=== PATIENT | female | born 1995 | race Caucasian/White ===

== ENCOUNTER 2017-06-13 12:23 | Outpatient (CLI) | payer MEDICAID ==
--- NOTE | 2017-06-13 15:04 | ULT ---
OB ULTRASOUND: HISTORY: Size and dates. FINDINGS: A single live intrauterine gestation is seen with measurements corresponding to an estimated gestatio nal age of 20 weeks 1 day and ADRIANNA at 10/30/17. The estimated weight measures 348 gm or 12 ounce s. measurements as follows: BPD 4.73 cm, 20 weeks 2 days HC 17.97 cm, 20 weeks 3 days AC 15.30 cm, 20 weeks 4 days FL 3.26 cm, 20 weeks 1 day The cervical length measures 3 cm. heart rate measures 137 b.p.m. The placenta is posterior w ithout evidence of placenta previa. Amniotic fluid is adequate. A 3-vessel cord, cord insertion, kidneys, bladder, stomach, 4-chamber heart, lateral ventricles , cerebellum, spine, lips/nose, upper and lower extremities visualized. No definite abnormalit ies are seen. IMPRESSION: Single live intrauterine of 20 weeks 1 day, estimated gestational age and estimated date of delivery at 10/30/17. POS: [facility]
== END 2017-06-13 12:24 | disposition home or self-care (01) ==
LOC: ULT 12:23
PROVIDERS: ATTEND Family Medicine
DX: Z34.92 Encounter for supervision of normal pregnancy, unspecified, second trimester (principal); Z3A.20 20 weeks gestation of pregnancy
CPT/HCPCS: 76805

== ENCOUNTER 2017-10-25 13:27 | Inpatient (IN) | payer OTHER ==
--- NOTE | 2017-10-30 16:30 | HP ---
HISTORY OF PRESENT ILLNESS: This is a 22-year-old white female, G1, P0 at 40 weeks gestation with ED C of 10/25/2017. The patient has had an uncomplicated course. She has been having co ntractions over the past week. Her cervix has been unchanged at 1-2 cm, 50%, high in vertex. She castellon s been admitted for an elective induction. PAST MEDICAL HISTORY: Unremarkable. PAST SURGICAL HISTORY: None. FAMILY HISTORY: Maternal aunt with breast cancer. SOCIAL HISTORY: She is single. She works at [employer]. She is a nonsmoker, nondrinker . REVIEW OF SYSTEMS: As above. PHYSICAL EXAMINATION: VITAL SIGNS: Stable, afebrile. HEENT: Clear. HEART: Regular rate and rhythm. LUNGS: Clear. ABDOMEN: Gravid. EXTREMITIES: With no edema. LABORATORY DATA AND X-RAY FINDINGS: GBS negative, HIV negative. One-hour GCT 116. Urine culture ne gative, GC chlamydia negative, Pap smear negative. HIV negative, hepatitis B negative, RPR negative, rubella immune, A positive blood type. ASSESSMENT: Term at 40 and 5 days. PLAN: 1. Routine L&D orders. 2. Routine anesthesia orders. 3. Pitocin augmentation.
[2017-10-31 06:30] VITALS: BMI 23.4
[2017-10-31] MEDS ORDERED: Ibuprofen 800 MG TAB PO PRN (06:30)
[2017-10-31] MEDS ORDERED: Lidocaine 1% (PF) 30 ML VIAL SC PRN (06:30)
[2017-10-31] MEDS ORDERED: NS w/ Oxytocin 10 units 500 ML IV SCH (06:30)
[2017-10-31] MEDS ORDERED: Acetaminophen 500 MG TAB PO PRN (06:30)
[2017-10-31] MEDS ORDERED: Misoprostol 200 MCG TAB PR PRN (06:30)
[2017-10-31] MEDS ORDERED: HYDROcodone/Acetaminophen 5/325 mg Tablet PO PRN (06:30)
[2017-10-31] MEDS ORDERED: Promethazine HCl 25 MG/ML VIAL IM PRN ×2 (06:30→09:48)
[2017-10-31] MEDS: Lactated Ringer's 1,000 ML IV SCH ×3 (06:35→14:11)
[2017-10-31 06:55] LABS: Hemoglobin 10.2 g/dL (12.0-16.0); Mean Corpuscular HGB CONC 33.3 g/dL (32.0-36.0); Mean Corpuscular Hemoglobin 28.1 pg (27.0-31.0); Mean Corpuscular Volume 84.4 fL (78.0-98.0); Mean Platelet Volume 9.1 fL (7.4-10.4); Platelet Count 150 thou/uL (130-400); Red Blood Cell (RBC) Count 3.65 mill/uL (4.20-5.40); White Blood Cell (WBC) Count 7.8 thou/uL (4.8-10.8)
[2017-10-31 07:32] LABS: HBSAg Index 0.13 S/CO (0-0.99); Hep B Surf Ag Non-Reactive S/CO (NonReactive); Syphilis Antibody Nonreactive (Nonreactive); Syphilis Antibody Index 0.03 S/CO (<1.00 Non-Reactive)
[2017-10-31] MEDS ORDERED: DISCONTINUE ALL PREVIOUS NARCOTICS FS SCH (08:00)
[2017-10-31] MEDS: Bupivacaine 0.5% 20 ML, fentaNYL Citrate/PF 400 MCG in Sodium Chloride 0.9% 72 ML EPIDURAL SCH ×2 (09:45→18:26)
[2017-10-31] MEDS ORDERED: Eucerin (Mineral Oil/Petrolatum,White) 30 gm Jar TOP PRN (09:48)
[2017-10-31] MEDS ORDERED: Ondansetron HCl/PF 4 MG/2 ML Vial IVP PRN (09:48)
[2017-10-31] MEDS ORDERED: Naloxone HCl 0.4 mg/ml Vial IVP PRN ×2 (09:48)
[2017-10-31] MEDS ORDERED: Lactated Ringer's 500 ML IV PRN (09:48)
[2017-10-31] MEDS ORDERED: ePHEDrine/0.9% NaCl/PF SYRINGE 50 mg/10 ml SLOW IVP PRN (09:48)
[2017-10-31] MEDS ORDERED: diphenhydrAMINE 50 MG/ML VIAL IVP PRN (09:48)
[2017-10-31] MEDS ORDERED: Acetaminophen 325 MG TAB PO PRN (09:48)
[2017-10-31] MEDS ORDERED: Communication Order-Pharmacy FS SCH (10:00)
[2017-10-31] MEDS ORDERED: fentaNYL Citrate/PF 400 MCG, Bupivacaine 0.5% 20 ML in Sodium Chloride 0.9% 72 ML EPIDURAL SCH (10:00)
[2017-10-31] MEDS: Ondansetron HCl/PF 4 MG/2 ML Vial IVP PRN ×2 (11:24→19:14)
[2017-10-31] MEDS: Dextrose 5%-Lactated Ringers 1,000 ML IV SCH (14:32)
[2017-10-31] MEDS ORDERED: Terbutaline Sulfate 1 MG/ML VIAL ONE (14:34)
[2017-10-31] MEDS ORDERED: Terbutaline Sulfate 1 MG/ML VIAL SC SCH (15:00)
[2017-11-01] MEDS: NS / Oxytocin 40 units/1000ml 1,000 ML IV PRN ×2 (00:02)
[2017-11-01] MEDS ORDERED: Milk Of Magnesia 30 ML UDCUP PO PRN (01:56)
[2017-11-01] MEDS ORDERED: Bisacodyl 10 MG SUPP PR PRN (01:56)
[2017-11-01] MEDS ORDERED: Adacel (T-DAP) 0.5 ML VIAL IM ONE (01:56)
[2017-11-01] MEDS ORDERED: NS / Oxytocin 40 units/1000ml 1,000 ML IV SCH (01:56)
[2017-11-01] MEDS: Dextrose 5%-Lactated Ringers 1,000 ML IV SCH (02:06)
--- NOTE | 2017-11-01 04:53 | OP ---
DATE OF PROCEDURE: 10/31/2017 at 2315 hours. PREOPERATIVE DIAGNOSIS: Term . POSTOPERATIVE DIAGNOSIS: Term . PROCEDURES: Spontaneous vaginal delivery with repair of a second-degree midline episiotomy and 4-cm bilateral vaginal wall lacerations with 3-0 chromic. ANESTHESIA: Epidural. PROCEDURE IN DETAIL: This 22-year-old white female, , taken to the delivery room, complete and pushing. Prepped and draped sterilely. Delivered a baby girl, Apgars 8 at 1 minute, 9 at 5 minutes. Baby did breathe and cry vigorously upon delivery. Delivered placenta, 3-vessel intact. The patie nt had a small second-degree midline episiotomy repaired with 3-0 chromic. She also had 4-cm vaginal and labial lacerations bilaterally, which was repaired with 3-0 chromic #1 running stitch. Estimate d blood loss was approximately 300 mL. The patient did have a large volume of urine output during th e delivery. Mom and baby did well.
[2017-11-01] MEDS: Ibuprofen 800 MG TAB PO SCH ×3 (05:42→21:50)
[2017-11-01 06:14] LABS: Hemoglobin 9.4 g/dL (12.0-16.0); Mean Corpuscular HGB CONC 33.4 g/dL (32.0-36.0); Mean Corpuscular Hemoglobin 28.4 pg (27.0-31.0); Mean Corpuscular Volume 85.2 fL (78.0-98.0); Mean Platelet Volume 9.1 fL (7.4-10.4); Platelet Count 127 thou/uL (130-400); RBC Distribution Width 13.9 % (11.5-14.5); Red Blood Cell (RBC) Count 3.29 mill/uL (4.20-5.40); White Blood Cell (WBC) Count 14.9 thou/uL (4.8-10.8)
[2017-11-01] MEDS: Ferrous Sulfate 325 MG TAB PO SCH ×2 (10:46→21:49)
[2017-11-01] MEDS: Docusate Calcium (SURFAK) 240 MG CAP PO SCH ×2 (10:46→21:49)
[2017-11-01] MEDS: HYDROcodone/Acetaminophen 5/325 mg Tablet PO PRN (20:30)
[2017-11-02] MEDS: Ibuprofen 800 MG TAB PO SCH (06:08)
[2017-11-02 08:05] VITALS: BP 110/64; TEMP 98.5
[2017-11-02] MEDS: Ferrous Sulfate 325 MG TAB PO SCH (09:44)
[2017-11-02] MEDS: Docusate Calcium (SURFAK) 240 MG CAP PO SCH (09:44)
[2017-11-02] MEDS: HYDROcodone/Acetaminophen 5/325 mg Tablet PO PRN ×2 (12:14→16:01)
--- NOTE | 2017-11-02 16:26 | PDOC.PP ---
Post Progress Note Post Day #: 2 Subjective: Doing well, caring for baby, ready to go home today PO intake tolerated: yes Flatus: yes Ambulation: yes Vital Signs (12 hours) Temp Pulse Resp BP Pulse Ox 11/02/17 08:00 98.5 F 67 18 110/64 100 Weight Weight 124 lb - Physical Examination General: NAD Cardiovascular: no m/r/g, RRR Respiratory: clear to auscultation bilaterally, non-labored breathing Abdominal: + bowel sounds, lochia, no distention, appropriately TTP Psychiatric: A&Ox3, normal affect Result Diagrams: 11/01/17 05:53 Additional Labs: Post Labs Blood Type A POSITIVE 10/31/17 06:41 Hep Bs Antigen Non-Reactive S/CO (NonReactive) 10/31/17 06:41 - Assessment/Plan PP day #2 Doing well D/C home
== END 2017-11-02 16:16 | disposition home or self-care (01) | DRG 775 ==
LOC: EDSTATUS 17:32 → L&D 10-31 06:13 → 3SE 11-01 02:23
PROVIDERS: ADMIT Family Medicine; ATTEND Family Medicine
PROC: 10E0XZZ Delivery of Products of Conception, External Approach (ICD-10-PCS; principal; 2017-10-31)
PROC: 3E033VJ Introduction of Other Hormone into Peripheral Vein, Percutaneous Approach (ICD-10-PCS; 2017-10-31)
PROC: 0KQM0ZZ Repair Perineum Muscle, Open Approach (ICD-10-PCS; 2017-10-31)
PROC: 10907ZC Drainage of Amniotic Fluid, Therapeutic from Products of Conception, Via Natural or Artificial Opening (ICD-10-PCS; 2017-10-31)
DX: O70.1 Second degree perineal laceration during delivery (principal); Z37.0 Single live birth; Z3A.40 40 weeks gestation of pregnancy
CPT/HCPCS: 36415; 51702; 85027; 86780; 86850; 86900; 86901; 87340; A4353; J1200; J2001; J2405; J3010; J3105; J3490; J7050

== ENCOUNTER 2017-10-28 07:18 | Day surgery (SDC) | payer OTHER ==
[2017-10-28 07:54] VITALS: BMI 23.0
--- NOTE | 2017-10-28 08:33 | PDOC.LDHP ---
Labor and Delivery H&P Chief complaint: contractions HPI: 22 y/o @ 40w3d presents due to contractions. She reports that the ctx started around 6am and became progressively closer together. She says that they got to where they were every 5 minutes and painful. She denies any vaginal bleeding, LOF, vaginal d/c. She reports good movement. Since she has gotten here she reports that she has only felt one contraction, and the rest have been cramping. ROS: denies headaches, dysuria, fevers, chills, LE swelling, vision changes. SEARCH CONSULTANT: Dr. Toby Dobbs Current gestational age (weeks): 40 (40w3d) Due date: 10/25/17 Grav: 1 Para: 0 Current complications: none Abnormal US findings: No Past Medical History: None Current medications: pre- vitamins, iron Previous surgical history: none Social history: none - Physical Exam Vital signs reviewed and normal: yes General: NAD Heart: RRR Lungs: CTAB Abdomen: gravid Extremeties: no edema FHT: category 2 (initially had minimal variability, but after some juice improved to moderate variability. Baseline 130, no decels) [place] contractions every: 20 minutes - Vaginal Exam cm dilated: 1 Effacement: 50% Station: -3 - OB Labs Blood type: A RH: positive Antibody Screen: negative HIV: negative RPR: negative HEPSAg: negative 1 hour GCT: negative GBS: negative Rubella: immune - Assessment 1. Contractions, rule out labor Patient presented complaining of ctx q5 minutes, but since arrival has had only one contraction. Her cervix was checked and it was /-3. She reports that she had her cervix checked last in the office and it was 1 cm at that time as well. Initially the FHT showed minimal variability, but this improved to a cat I strip with moderate variability after some juice. - Plan -: -d/c home with strict labor precautions -f/u with Dr. Santiago Dobbs in 1-2 days -Counseled on good PO intake <Mis Irby - Last Filed: 10/28/17 08:38> <Severiano Clemens - Last Filed: 10/28/17 09:53> Allergies/Adverse Reactions: Allergies Allergy/AdvReac Type Severity Reaction Status Date / Time soap Allergy Hives Verified 10/28/17 07:48 SOAP Allergy Uncoded 09/15/17 14:45 Attending Addendum - Attending Addendum Date/Time: 10/28/1753 I personally evaluated the patient and discussed the management with Dr. Irby. I agree with the History, Examination, Assessment and Plan. <Severiano Clemens - Last Filed: 10/28/17 09:53>
--- NOTE | 2017-10-28 08:43 | PDOC.EVN ---
Event Note - Event Note Event Note: At the time the patient was about to be discharged, her BP was re-checked and it was 140/89. -Will check CBC, CMP, and urine prot:cr ratio to r/o pre-eclampsia -Recheck BP <Mis Irby - Last Filed: 10/28/17 08:42> Attending Addendum - Attending Addendum Date/Time: 10/28/1752 I personally evaluated the patient and discussed the management with Dr. Irby. I agree with the History, Examination, Assessment and Plan. <Severiano Clemens - Last Filed: 10/28/17 09:52>
[2017-10-28 09:29] LABS: Creatinine, Urine 34.95 mg/dL (47-110); Protein, Urine Random Quant Less than 10 mg/dL (1-14)
[2017-10-28 09:54] LABS: #Eosinphils 0.1 thou/uL (0.0-0.7); #Lymphocytes 1.4 thou/uL (1.20-3.40); #Monocytes 0.6 thou/uL (0.11-0.59); #Neutrophils 5.6 thou/uL (1.40-6.50); %Basophils 0.4 % (0.0-1.0); %Eosinophils 1.7 % (0.0-10.0); %Lymphocytes 17.8 % (21.0-51.0); %Neutrophils 72.1 % (42.0-75.0); Hemoglobin 10.9 g/dL (12.0-16.0); Mean Corpuscular Volume 85.4 fL (78.0-98.0); Mean Platelet Volume 9.1 fL (7.4-10.4); Platelet Count 145 thou/uL (130-400); RBC Distribution Width 14.1 % (11.5-14.5); Red Blood Cell (RBC) Count 3.74 mill/uL (4.20-5.40); White Blood Cell (WBC) Count 7.7 thou/uL (4.8-10.8)
[2017-10-28 10:16] LABS: ALT (SGPT) Less than 7 U/L (8-55); AST (SGOT) 14 U/L (5-34); Albumin 3.3 g/dL (3.5-5.0); Alkaline Phosphatase 272 U/L (40-150); Anion Gap 16 mmol/L (10-20); BUN (Urea Nitrogen) 8 mg/dL (7.0-18.7); Bilirubin, Total 0.3 mg/dL (0.2-1.2); Calc. Creatinine Clearance 109 mL/min (70-130); Carbon Dioxide 21 mmol/L (22-29); Chloride 104 mmol/L (98-107); Estimated GFR-MDRD Greater than 90; Glucose 82 mg/dL (70-105); Potassium 3.7 mmol/L (3.5-5.1); Protein, Total 6.3 g/dL (6.0-8.3); Sodium 137 mmol/L (136-145)
--- NOTE | 2017-10-28 10:27 | PDOC.EVN ---
Event Note - Event Note Event Note: Urine Prot:Cr ratio 0.28 CBC and CMP WNL with no elevation in creatinine or LFT's. BP's have improved with no more elevated ones with most recent check 127/89 Pt resting comfortably. Will d/c home with pre-eclampsia and labor precautions. f/u with Dr. Dobbs in 1-2 days <Mis Irby - Last Filed: 10/28/17 10:26> Attending Addendum - Attending Addendum Date/Time: 10/28/17 1320 I personally evaluated the patient and discussed the management with Dr. Irby. I agree with the Assessment and Plan documented above. <Severiano Clemens - Last Filed: 10/28/17 13:21>
== END 2017-10-28 10:27 | disposition home or self-care (01) ==
LOC: L&D/OP 07:18
PROVIDERS: ATTEND Family Medicine
DX: O47.1 False labor at or after 37 completed weeks of gestation (principal); Z3A.40 40 weeks gestation of pregnancy; Z79.899 Other long term (current) drug therapy; Z91.048 Other nonmedicinal substance allergy status
CPT/HCPCS: 36415; 51701; 80053; 82570; 84156; 85025; 99284; A4353

== ENCOUNTER 2019-03-08 00:07 | Emergency (ER) | payer OTHER, SELFPAY | END 2019-03-08 01:30 | disposition home or self-care (01) | LOC: ERS 00:07 | DX: S50.12XA Contusion of left forearm, initial encounter (principal); S20.311A Abrasion of right front wall of thorax, initial encounter; F41.9 Anxiety disorder, unspecified; F32.9 Major depressive disorder, single episode, unspecified; Y04.1XXA Assault by human bite, initial encounter | CPT/HCPCS: 99284 ==

== ENCOUNTER 2019-03-08 19:26 | Emergency (ER) | payer SELFPAY ==
[2019-03-08] MEDS ORDERED: Amoxicillin/Potassium Clav 875 MG TAB ONE (20:44)
[2019-03-08] MEDS ORDERED: traMADol HCl 50 MG TAB ONE (20:45)
[2019-03-08] MEDS ORDERED: Adacel (T-DAP) 0.5 ML SYRINGE ONE (20:54)
== END 2019-03-08 20:50 | disposition home or self-care (01) ==
LOC: ERS 19:26
DX: S01.551A Open bite of lip, initial encounter (principal); S41.152A Open bite of left upper arm, initial encounter; S21.152A Open bite of left front wall of thorax without penetration into thoracic cavity, initial encounter; S21.151A Open bite of right front wall of thorax without penetration into thoracic cavity, initial encounter; S40.012A Contusion of left shoulder, initial encounter; S40.011A Contusion of right shoulder, initial encounter; S10.93XA Contusion of unspecified part of neck, initial encounter; S80.11XA Contusion of right lower leg, initial encounter; F32.9 Major depressive disorder, single episode, unspecified; Y04.8XXA Assault by other bodily force, initial encounter
CPT/HCPCS: 90471; 90715